=== PATIENT | female | born 1980 ===

== ENCOUNTER 2017-03-16 08:38 | Emergency (ER) | payer MEDICAID, OTHER ==
[2017-03-16 08:50] VITALS: BMI 25.9
[2017-03-16 08:57] VITALS: TEMP 98.9
[2017-03-16] MEDS ORDERED: Sodium Chloride 0.9% 1,000 ML IV STA ×2 (09:17→10:20)
--- NOTE | 2017-03-16 09:41 | ED PDOC ---
Arrival/HPI - General Chief Complaint: Abdominal Pain Time Seen by Provider: 03/16/17 09:17 Historian: Patient - History of Present Illness Narrative History of Present Illness (Text): 03/16/17 09:37 36-year-old female presents today with a one-week history of right sided lower abdominal pain. Patient with nausea and vomiting, urinary frequency, and severe right lower quadrant abdominal pain that has been worsening over the past week. She denies fevers at home. No chest pain or shortness of breath. Denies dysuria. Denies vaginal bleeding or discharge. Patient states she was seen in the hospital 6 days ago and was told she had a cyst on her ovary. Patient states the pain has not improved despite taking Motrin. Denies . Denies dizziness or weakness. No other complaints Time/Duration: 1 week Symptom Onset: Gradual Symptom Course: Worsening Quality: Aching, Stabbing Severity Level: Moderate Past Medical History - Provider Review Nursing Documentation Reviewed: Yes - Travel History Have you recently traveled outside [place] w/in the past 3 mons?: No - Infectious Disease Hx of Infectious Diseases: None - Tetanus Immunization Tetanus Immunization: Unknown - Endocrine/Metabolic Hx Diabetes Mellitus Type 2: Yes - Psychiatric Hx Substance Use: No Family/Social History - Physician Review Nursing Documentation Reviewed: Yes Family/Social History: Unknown Family HX Smoking Status: Never Smoked Hx Alcohol Use: No Hx Substance Use: No Allergies/Home Meds Allergies/Adverse Reactions: Allergies No Known Allergies Allergy (Verified 03/16/17 08:50) Home Medications: Home Meds Medication Instructions Recorded Confirmed MetFORMIN [glucoPHAGE] 1,000 mg PO BID 03/16/17 03/16/17 Review of Systems - Review of Systems Constitutional: absent: Fatigue, Fevers Respiratory: absent: SOB, Cough Cardiovascular: absent: Chest Pain, Palpitations Gastrointestinal: Abdominal Pain, Nausea, Vomiting. absent: Constipation, Diarrhea Genitourinary Female: Frequency. absent: Dysuria, Hematuria Musculoskeletal: absent: Arthralgias, Back Pain, Neck Pain Skin: absent: Rash, Pruritis Neurological: absent: Headache, Dizziness Psychiatric: absent: Anxiety, Depression, Suicidal Ideation Physical Exam Vital Signs Reviewed: Yes Vital Signs Temp Pulse Resp BP Pulse Ox 03/16/17 12:08 86 18 119/71 100 03/16/17 11:31 82 16 132/76 97 03/16/17 08:39 98.9 F 88 18 129/74 100 Temperature: Afebrile Blood Pressure: Normal Pulse: Regular Respiratory Rate: Normal Appearance: Positive for: Well-Appearing, Non-Toxic, Comfortable Pain Distress: None Mental Status: Positive for: Alert and Oriented X 3 Finger Stick Blood Glucose: 265 - Systems Exam Head: Present: Atraumatic Mouth: Present: Moist Mucous Membranes Neck: Present: Normal Range of Motion Respiratory/Chest: Present: Clear to Auscultation, Good Air Exchange. No: Respiratory Distress, Accessory Muscle Use Cardiovascular: Present: Regular Rate and Rhythm, Normal S1, S2. No: Murmurs Abdomen: Present: Tenderness (RLQ tenderness), Normal Bowel Sounds, Guarding, McBurney's Point Tender. No: Rebound Back: Present: Normal Inspection, Paraspinal Tenderness (bilateral ). No: Midline Tenderness Upper Extremity: Present: Normal ROM Lower Extremity: Present: Normal ROM Skin: Present: Warm, Dry, Normal Color. No: Rashes Psychiatric: Present: Alert, Oriented x 3 Medical Decision Making ED Course and Treatment: 03/16/17 09:39 Patient is nontoxic well appearing with stable vital signs presenting with [ severe] abdominal pain CBC wnl CMP Glucose; 300 Lipase: wnl Urinalysis + leukocytes, + bacteria CAT scan:FINDINGS: LOWER THORAX: Unremarkable. LIVER: Unremarkable. No gross lesion or ductal dilatation. GALLBLADDER AND BILE DUCTS: Unremarkable. PANCREAS: Unremarkable. No gross lesion or ductal dilatation. SPLEEN: Unremarkable. ADRENALS: Unremarkable. No mass. KIDNEYS AND URETERS: Unremarkable. No hydronephrosis. No solid mass. VASCULATURE: Unremarkable. No aortic aneurysm. BOWEL: Unremarkable. No obstruction. No gross mural thickening. APPENDIX: Normal appendix. PERITONEUM: There is a small amount of free fluid around the right adnexa LYMPH NODES: Unremarkable. No enlarged lymph nodes. BLADDER: Unremarkable. REPRODUCTIVE: There is a thick-walled collapsed cyst in the right ovary with a small amount of adjacent free fluid. Findings are best seen on axial image 130 series 2 BONES: No acute fracture. OTHER FINDINGS: None. IMPRESSION: Thick-walled collapsed cyst in the right ovary with adjacent free fluid consistent with recent cyst rupture. There is no evidence of appendicitis Patient reassessment: The patient feeling better after medications discussed all results in depth with the patient advised follow-up with the therapy site coordinator and primary care physician within the next 2 days. Advised taking Macrobid for UTI. Advised immediate return if symptoms worsen persist or if new concerning symptoms develop. Discussed diabetes with the patient advised exercise and diet modification. All information was translated to the patient using solvent process extractor operator bending roll operator # [id number] Impression: Abdominal pain, ovarian cyst, uti Motrin every 6 hours as needed for pain macrobid; 1 tablet twice daily x 10 days. Follow up with primary care physician within the next 2 days Follow up with the GEAR MACHINIST within the next 2 days. increase fluids Return immediately if symptoms worsen persist or if new symptoms develop: High fevers, increasing pain, vomiting, diarrhea or any other concerning symptoms develop - Lab Interpretations Lab Results: 03/16/17 09:40 03/16/17 09:40 Lab Results 03/16/17 09:40: Urine HCG, Qual Negative 03/16/17 09:40: WBC 6.7, RBC 5.08, Hgb 16.2 H, Hct 45.0, MCV 88.6, MCH 31.9, MCHC 36.0, RDW 12.0, Plt Count 242, MPV 10.1, Gran % 56.8, Lymph % (Auto) 31.3, [place] % (Auto) 11.0 H, Eos % (Auto) 0.6 L, Baso % (Auto) 0.3, Gran # 3.81, Lymph # 2.1, [place] # 0.7 H, Eos # 0.0, Baso # 0.02 03/16/17 09:40: Sodium 133, Potassium 4.2, Chloride 101, Carbon Dioxide 23, Anion Gap 13, BUN 21, Creatinine 0.6 L, Est GFR ( Amer) > 60, Est GFR ( Non-Af Amer) > 60, Random Glucose 301 H*, Calcium 10.3, Total Bilirubin 0.7, AST 28, ALT 40, Alkaline Phosphatase 62, Total Protein 7.6, Albumin 4.2, Globulin 3.4, Albumin/Globulin Ratio 1.2, Lipase 137 03/16/17 09:40: Urine Color Yellow, Urine Appearance Clear, Urine pH 6.0, Ur Specific [place] 1.025, Urine Protein Trace H, Urine Glucose (UA) >=1000, Urine Ketones Negative, Urine Blood Negative, Urine Nitrate Negative, Urine Bilirubin Negative, Urine Urobilinogen 0.2, Ur Leukocyte Esterase Small H, Urine RBC Negative, Urine WBC 1 - 3, Ur Epithelial Cells 10 - 12, Urine Bacteria Small - RAD Interpretation Radiology Orders: 03/16/17 09:35 ABD PELVIS PO & IV CONTRAST [CT] Stat - Medication Orders Current Medication Orders: Discontinued Medications Sodium Chloride (Sodium Chloride 0.9%) 1,000 mls @ 999 mls/hr IV .Q1H1M STA Stop: 03/16/17 10:17 Last Admin: 03/16/17 09:39 Dose: 999 mls/hr eMAR Start Stop Document 03/16/17 09:39 SRE (Rec: 03/16/17 09:40 SRE [id number]) Intravenous Solution Start Date 03/16/17 Start Time 09:40 End Date 03/16/17 End time 10:40 Total Infusion Time 60 Sodium Chloride (Sodium Chloride 0.9%) 1,000 mls @ 999 mls/hr IV .Q1H1M STA Stop: 03/16/17 11:20 Last Admin: 03/16/17 11:01 Dose: 999 mls/hr eMAR Start Stop Document 03/16/17 11:01 SRE (Rec: 03/16/17 11:01 SRE [id number]) Intravenous Solution Start Date 03/16/17 Start Time 11:01 End Date 03/16/17 End time 12:00 Total Infusion Time 59 Ketorolac Tromethamine (Toradol) 30 mg IVP STAT STA Stop: 03/16/17 10:01 Last Admin: 03/16/17 10:13 Dose: 30 mg MAR Pain Assessment Document 03/16/17 10:13 SRE (Rec: 03/16/17 10:14 SRE [id number]) Pain Reassessment Is this a pain reassessment? Yes Sleep Is patient sleeping during reassessment? No Presence of Pain Presence of Pain Yes Pain Scale Used Pain Scale Used Numeric Location Left, Right or Bilateral Right Pain Location Body Site Abdomen Description Description Intermittent IVP Administration Document 03/16/17 10:13 SRE (Rec: 03/16/17 10:14 SRE [id number]) Charges for Administration # of IVP Administrations 1 Nitrofurantoin Macrocrystals (Macrobid) 100 mg PO STAT STA Stop: 03/16/17 13:07 Last Admin: 03/16/17 13:12 Dose: 100 mg Ondansetron HCl (Zofran Inj) 4 mg IVP STAT STA Stop: 03/16/17 10:02 Last Admin: 03/16/17 10:12 Dose: 4 mg IVP Administration Document 03/16/17 10:12 SRE (Rec: 03/16/17 10:13 SRE [id number]) Charges for Administration # of IVP Administrations 1 Disposition/Present on Arrival - Present on Arrival Any Indicators Present on Arrival: No History of DVT/PE: No History of Uncontrolled Diabetes: No Urinary Catheter: No History of Decub. Ulcer: No History Surgical Site Infection Following: None - Disposition Have Diagnosis and Disposition been Completed?: Yes Diagnosis: Abdominal pain, Ovarian cyst, UTI (urinary tract infection), Diabetes Disposition: HOME/ ROUTINE Disposition Time: 13:27 Patient Plan: Discharge Patient Problems: Current Active Problems Problem Status Onset Abdominal pain Acute Diabetes Acute Ovarian cyst Acute UTI (urinary tract infection) Acute Condition: GOOD Discharge Instructions (ExitCare): Ovarian Cyst (ED), Acute Abdominal Pain (ED) Print Language: FRENCH Additional Instructions: Motrin every 6 hours as needed for pain macrobid; 1 tablet twice daily x 10 days. Follow up with primary care physician within the next 2 days Follow up with the GEAR MACHINIST within the next 2 days. increase fluids Return immediately if symptoms worsen persist or if new symptoms develop: High fevers, increasing pain, vomiting, diarrhea or any other concerning symptoms develop Prescriptions: Nitrofurantoin Macrocrystals [Macrobid] 100 mg PO BID #20 cap Referrals: [facility] [place]Outside] - [facility] with [facility] [Outside] - Follow up with primary Forms: [employer] (Ugandan), WORK NOTE
[2017-03-16] MEDS ORDERED: Iohexol 240 (50 ml) ONE (09:42)
[2017-03-16 09:53] LABS: BASO # 0.02 K/mm3 (0.0-2.0); BASO % 0.3 % (0.0-3.0); EOS % 0.6 % (1.5-5.0); GRAN # 3.81 (1.4-6.5); GRAN % 56.8 % (50.0-68.0); LYMPH # 2.1 (1.2-3.4); LYMPH % 31.3 % (22.0-35.0); MEAN CELL VOLUME 88.6 fl (80.0-105.0); MEAN CORPUSCULAR HEMOGLOBIN 31.9 pg (25.0-35.0); MEAN PLATELET VOLUME 10.1 fl (7.0-11.0); MONO # 0.7 (0.1-0.6); WHITE BLOOD COUNT 6.7 10^3/ul (4.5-11.0)
[2017-03-16 09:54] LABS: URINE BILIRUBIN NEGATIVE (NEGATIVE); URINE BLOOD NEGATIVE (NEGATIVE); URINE GLUCOSE (UA) >=1000 mg/dL (NEGATIVE); URINE KETONE NEGATIVE (NEGATIVE); URINE LEUKOCYTE ESTERASE SMALL Leu/uL (NEGATIVE); URINE PROTEIN TRACE mg/dL (<30 mg/dL); URINE UROBILINOGEN 0.2 E.U./dL (<1 E.U./dL)
[2017-03-16 09:56] LABS: URINE APPEARANCE CLEAR (CLEAR); URINE COLOR YELLOW (YELLOW)
[2017-03-16 09:59] LABS: URINE RBC NEGATIVE /hpf (0-2)
[2017-03-16 10:00] LABS: URINE BACTERIA SMALL (NEG)
[2017-03-16 10:04] LABS: ALB/GLOB RATIO 1.2 (1.1-1.8); ALKALINE PHOSPHATASE 62 U/L (38-126); ALT/SGPT 40 U/L (7-56); AST/SGOT 28 U/L (14-36); BILIRUBIN,TOTAL 0.7 mg/dL (0.2-1.3); BLOOD UREA NITROGEN 21 mg/dL (7-21); CALCIUM 10.3 mg/dL (8.4-10.5); CARBON DIOXIDE 23 mmol/L (21-33); CHLORIDE 101 mmol/L (98-107); GFR AFRICAN-AMERICAN > 60; LIPASE 137 U/L (23-300); POTASSIUM 4.2 mmol/L (3.6-5.0); SODIUM 133 mmol/L (132-148); TOTAL PROTEIN 7.6 g/dL (5.8-8.3)
[2017-03-16 10:12] LABS: GLUCOSE,RANDOM 301 mg/dL (70-110)
[2017-03-16] MEDS ORDERED: Iohexol 350 MG/100 ML VIAL ONE (11:11)
[2017-03-16 12:13] VITALS: BP 119/71; PULSE 86; RESP 18; O2SAT 100
--- NOTE | 2017-03-16 12:33 | CT ---
PROCEDURE: CT Abdomen and Pelvis with contrast HISTORY: rlq abdominal pain COMPARISON: None. TECHNIQUE: Contrast dose: 100 cc of Omni 350 Radiation dose: Total exam DLP = 326 mGy-cm. This CT exam was performed using one or more of the following dose reduction techniques: Automated exposure control, adjustment of the mA and/or kV according to patient size, and/or use of iterative reconstruction technique. FINDINGS: LOWER THORAX: Unremarkable. LIVER: Unremarkable. No gross lesion or ductal dilatation. GALLBLADDER AND BILE DUCTS: Unremarkable. PANCREAS: Unremarkable. No gross lesion or ductal dilatation. SPLEEN: Unremarkable. ADRENALS: Unremarkable. No mass. KIDNEYS AND URETERS: Unremarkable. No hydronephrosis. No solid mass. VASCULATURE: Unremarkable. No aortic aneurysm. BOWEL: Unremarkable. No obstruction. No gross mural thickening. APPENDIX: Normal appendix. PERITONEUM: There is a small amount of free fluid around the right adnexa LYMPH NODES: Unremarkable. No enlarged lymph nodes. BLADDER: Unremarkable. REPRODUCTIVE: There is a thick-walled collapsed cyst in the right ovary with a small amount of adjacent free fluid. Findings are best seen on axial image 130 series 2 BONES: No acute fracture. OTHER FINDINGS: None. IMPRESSION: Thick-walled collapsed cyst in the right ovary with adjacent free fluid consistent with recent cyst rupture. There is no evidence of appendicitis
--- NOTE | 2017-03-16 16:55 | CARD ---
APPROVED REPORT EKG Measurement Heart [id number] PA [id number] <Conclusion> Normal sinus rhythm Nonspecific ST abnormality Abnormal ECG
== END 2017-03-16 13:39 | disposition home or self-care (01) ==
LOC: ED 08:38
DX: N83.201 Unspecified ovarian cyst, right side (principal); N39.0 Urinary tract infection, site not specified; E11.9 Type 2 diabetes mellitus without complications; R10.9 Unspecified abdominal pain; Z79.84 Long term (current) use of oral hypoglycemic drugs
CPT/HCPCS: 74177; 80053; 81001; 83690; 84703; 85025; 87086; 93005; 96361; 96374; 96375; 99285; J1885; J2405; J7040; Q9966; Q9967

== ENCOUNTER 2017-04-14 13:55 | Observation (INO) | payer MEDICAID ==
[2017-04-14 14:09] VITALS: BMI 26.5
[2017-04-14] MEDS ORDERED: Sodium Chloride 0.9% 500 ML IV STA ×2 (14:09→15:20)
--- NOTE | 2017-04-14 14:34 | ED PDOC ---
Arrival/HPI - General Chief Complaint: Altered Mental Status Time Seen by Provider: 04/14/17 14:02 Historian: Patient, EMS EM Caveat: Altered Mental Status, Language Barrier - Critical Care Critical Care Minutes: Other (35minutes) Narrative Critical Care (Text): 04/14/17 16:47 critical care time: 35min, excluding procedure time, excluding time teaching residents/students/mid-level providers; including initial eval/diagnosis, diagnostic interpretation, re-eval, consultations, final disposition - History of Present Illness Narrative History of Present Illness (Text): 04/14/17 14:34 per EMS, pt was not feeling well today, while at work just prior to ED arrival became lightheaded/worsening fatigue and ? syncope while sitting at her work; EMS arrived and noted FS ~ 340s; pt states she has diffuse pain/discomfort throughout her head/chest/abd; pt states no fever/chills/sweats, no sob, no n/v , no numbness/tingling, no urinary/bowel changes, no incontience, no rashes, no gross bleeding, no fall/trauma/sick contact, no travel; pt is here for further eval; pt's without other complaints. 04/14/17 16:04 pt states she has not been eating well, no appetite, ? depression Time/Duration: Prior to Arrival Symptom Onset: Sudden Symptom Course: Unchanged Quality: Burning, Throbbing Severity Level: 5 Activities at Onset: Rest Context: Sitting Past Medical History - Provider Review Nursing Documentation Reviewed: Yes - Travel History Have you recently traveled outside [place] w/in the past 3 mons?: No - Past History Past History: Non-Contributing (hx of diabetes/ovarian cysts) - Infectious Disease Hx of Infectious Diseases: None - Tetanus Immunization Tetanus Immunization: Unknown - Reproductive Menopause: No - Past Medical History Past Medical History: Non-Contributing - Endocrine/Metabolic Hx Diabetes Mellitus Type 2: Yes - Psychiatric Hx Substance Use: No - Suicidal Assessment Suicidal Thoughts: No Family/Social History - Physician Review Nursing Documentation Reviewed: Yes Family/Social History: Other (non-contributory) Smoking Status: Never Smoked Hx Alcohol Use: No Hx Substance Use: No Allergies/Home Meds Allergies/Adverse Reactions: Allergies No Known Allergies Allergy (Verified 03/11/17 20:07) Home Medications: Home Meds Medication Instructions Recorded Confirmed MetFORMIN [glucoPHAGE] 1,000 mg PO BID 03/16/17 04/14/17 Review of Systems - Review of Systems Systems not reviewed;Unavailable: Language Barrier Constitutional: Normal, Other (alert/awake, NAD, following commands but decr verbal responses; resting in bed) Eyes: Normal. absent: Vision Changes, Photophobia, Eye Pain ENT: Normal Respiratory: Normal Cardiovascular: Chest Pain. absent: Palpitations, Edema, Calf Pain, [place] Gastrointestinal: Abdominal Pain Genitourinary Female: Normal Musculoskeletal: Normal Skin: Normal Neurological: Headache, Dizziness Endocrine: Normal Hemo/Lymphatic: Normal Psychiatric: Depression Physical Exam Vital Signs Reviewed: Yes (mildly elevated BP) Vital Signs Temp Pulse Resp BP Pulse Ox 04/14/17 16:23 86 18 109/60 99 04/14/17 14:45 98.3 F 82 17 113/72 100 04/14/17 14:02 98 F 88 18 147/58 L 100 Temperature: Afebrile Blood Pressure: Hypertensive Pulse: Regular Respiratory Rate: Normal Appearance: Positive for: Well-Appearing, Non-Toxic, Other (alert/awake, NAD, following commands but decr verbal responses; resting in bed) Pain Distress: None Mental Status: Positive for: Alert and Oriented X 3 - Systems Exam Head: Present: Atraumatic, Normocephalic Pupils: Present: PERRL, Other (visual field intact b/l, no photophobia, sclera anicteric) Extroacular Muscles: Present: EOMI Conjunctiva: Present: Normal Ears: Present: Normal Mouth: Present: Moist Mucous Membranes, Normal Teeth Pharnyx: Present: Normal Nose (External): Present: Atraumatic Neck: Present: Normal Range of Motion Respiratory/Chest: Present: Clear to Auscultation, Good Air Exchange. No: Respiratory Distress, Accessory Muscle Use, Wheezes, Decreased Breath Sounds, Rales, Rhonchi Cardiovascular: Present: Regular Rate and Rhythm, Normal S1, S2. No: Murmurs Abdomen: Present: Normal Bowel Sounds. No: Tenderness, Distention, Peritoneal Signs, Rebound, Guarding, McBurney's Point Tender, Rovsing's Sign Present Rectal: Present: Normal Rectal Tone, Other (GUAIC: negative). No: Occult Blood , Rectal Tenderness Back: Present: Normal Inspection Upper Extremity: Present: Normal Inspection, Normal ROM, NORMAL PULSES, Capillary Refill < 2s. No: Cyanosis, Edema Lower Extremity: Present: Normal Inspection, NORMAL PULSES, Normal ROM, Capillary Refill < 2 s. No: Edema, CALF TENDERNESS Neurological: Present: GCS=15, CN II-XII Intact, Motor Func Grossly Intact, Normal Sensory Function Skin: Present: Warm, Normal Color, Other (cap refill < 1sec, no lesions/ lacerations, no petechiae, no gross pallor). No: Rashes Psychiatric: Present: Alert, Other (mild flat affect) Medical Decision Making ED Course and Treatment: 04/14/17 14:54 pt arrived to ED with elevated FS and complaints of diffuse body pain/mejia/chest aches/abd pain; pt ? passed out while at work today A/P: weakness/pain/syncope, elevated FS - labs - iv - ekg - xray and ct head - ua - observe - supportive care 04/14/17 16:08 i was notified by nursing staff that after i had notified patient of her medical results, pt cried and states she feels very depressed and ? suicidal 04/14/17 16:51 pt became tearful pt is made aware of pt's medical results agrees with admission 4:30pm - i spoke to clinical operations specialist hospitalists, Dr Qureshi, made aware of pt's current ED presentation, does not recommend blood transfusion at the moment, agrees with ED mgt, will re-check pt's lab results and agrees with admission Reassessment Condition: Unchanged, Improving,but remains with symptoms - Lab Interpretations Narrative Lab Interpretation (Text): 04/14/17 18:27 initial lab results were concerning and abnl repeated CMP indicated improvements, will hold Calcium Gluconate/KCL pt's H/H is improved as well 04/14/17 18:27 Lab Results: 04/14/17 16:11 04/14/17 16:11 Lab Results 04/14/17 16:11: Sodium 138, Chloride 109 H, Potassium 3.8, Carbon Dioxide 20 L, Anion Gap 13, BUN 9, Creatinine 0.5 L, Est GFR ( Amer) > 60, Est GFR (Non -Af Amer) > 60, Random Glucose 205 H, Calcium 8.5, Magnesium 1.5 L, Total Bilirubin 0.7, AST 17, ALT 32, Alkaline Phosphatase 50, Total Protein 6.7, Albumin 3.5, Globulin 3.2, Albumin/Globulin Ratio 1.1 04/14/17 16:11: WBC 7.6 D, RBC 4.28, Hgb 13.4 D, Hct 38.2, MCV 89.3, MCH 31.3 , MCHC 35.1, RDW 12.4, Plt Count 241, MPV 10.3 04/14/17 16:11: Ammonia < 9 L 04/14/17 14:26: pO2 36, VBG pH 7.28 L, VBG pCO2 35.0 L, VBG HCO3 16.4 L, VBG Total CO2 17.5 L, VBG O2 Sat (Calc) 68.7 H, VBG Base Excess -9.4 L, VBG Potassium 2.9 L, Sodium 140.0, Chloride 114.0 H, Glucose 234 H, Lactate 1.3, FiO2 21.0, Venous Blood Potassium 2.9 L 04/14/17 14:26: Salicylates < 1 L, Acetaminophen < 10.0 L 04/14/17 14:26: Serum Osmolality Pending, TSH 3rd Generation 0.11 L, Alcohol, Quantitative < 10 04/14/17 14:26: Urine Opiates Screen Negative, Urine Methadone Screen Negative, Ur Barbiturates Screen Negative, Ur Phencyclidine Scrn Negative, Ur Amphetamines Screen Negative, U Benzodiazepines Scrn Negative, U Oth Cocaine Metabols Negative, U Cannabinoids Screen Negative 04/14/17 14:26: Sodium 140, Chloride 119 H, Potassium 2.8 L* D, Carbon Dioxide 15 L, Anion Gap 9 L, BUN 8, Creatinine 0.4 L, Est GFR ( Amer) > 60, Est GFR (Non-Af Amer) > 60, Random Glucose 195 H, Calcium 5.5 L*, Phosphorus 1.6 L, Magnesium 1.1 L, Total Bilirubin 0.5, AST 11 L D, ALT 33, Alkaline Phosphatase 29 L D, Lactate Dehydrogenase 230 L, Total Creatine Kinase 51, Troponin I < 0.01 , Total Protein 4.6 L, Albumin 2.2 L, Globulin 2.4, Albumin/Globulin Ratio 0.9 L 04/14/17 14:26: Urine Color Yellow, Urine Appearance Clear, Urine pH 6.0, Ur Specific [place] 1.020, Urine Protein Negative, Urine Glucose (UA) >=1000, Urine Ketones 15 H, Urine Blood Negative, Urine Nitrate Negative, Urine Bilirubin Negative, Urine Urobilinogen 0.2, Ur Leukocyte Esterase Negative 04/14/17 14:26: WBC 4.4 L D, RBC 2.78 L, Hgb 8.7 L D, Hct 25.0 L, MCV 89.9, MCH 31.3, MCHC 34.8, RDW 12.2, Plt Count 152, MPV 9.6, Gran % 65.7, Lymph % (Auto) 27.9, [place] % (Auto) 6.2 H, Eos % (Auto) 0.2 L, Baso % (Auto) 0.0, Gran # 2.88, Lymph # 1.2, [place] # 0.3, Eos # 0.0, Baso # 0.00 04/14/17 14:00: POC Glucose (mg/dL) 291 H I have reviewed the lab results: Yes Interpretation: Abnormal lab values (+ anemia; abnl electrolytes) - RAD Interpretation Narrative RAD Interpretations (Text): 04/14/17 16:10 BRAIN: Sheldon-white matter differentiation is preserved. There is no mass, mass effect or abnormal extra-axial fluid collection. VENTRICLES: The ventricles are normal in size, shape and configuration. CALVARIUM: The skull base and calvarium are normal. PARANASAL SINUSES: There is mild polypoid mucosal thickening in the left maxillary sinus. The remaining included paranasal sinuses are clear. MASTOID AIR CELLS: Unremarkable as visualized. No inflammatory changes. OTHER FINDINGS: None. IMPRESSION: No acute intracranial abnormality. Radiology Orders: 04/14/17 14:09 HEAD W/O CONTRAST [CT] Stat 04/14/17 14:12 CHEST TWO VIEWS (PA/LAT) [RAD] Stat Foam Gun Operator: Radiologist - EKG Interpretation EKG Interpretation (Text): 04/14/17 14:31 NSR at 90 bpm, normal axis, no ectopy, inverted T in leads III, no st changes, Borderline EKG; unchanged compare with old ekg 03/2017 Interpreted by ED Physician: Yes Type: 12 lead EKG Comparison: Similar to previous EKG - Medication Orders Current Medication Orders: Acetaminophen (Tylenol 325mg Tab) 650 mg PO Q4H PRN PRN Reason: Fever >100.4 F Acetaminophen (Tylenol 325mg Tab) 650 mg PO Q4 PRN PRN Reason: Pain, moderate (4-7) Heparin Sodium (Porcine) (Heparin) 5,000 units SC Q8 LYN PRN Reason: Protocol Magnesium Sulfate/Dextrose (Magnesium Sulfate 1 Gm/100 Ml D5w) 1 gm in 100 mls @ 100 mls/hr IVPB ONCE ONE Stop: 04/14/17 18:29 Insulin Human Lispro (Humalog Med) 0 units SC ACHS LYN PRN Reason: Protocol Pantoprazole Sodium (Protonix Ec Tab) 40 mg PO ACB LYN Discontinued Medications Sodium Chloride (Sodium Chloride 0.9%) 500 mls @ 1,000 mls/hr IV .Q30M STA Stop: 04/14/17 14:38 Last Admin: 04/14/17 14:20 Dose: 1,000 mls/hr eMAR Start Stop Document 04/14/17 14:20 RG (Rec: 04/14/17 14:20 RG [id number]) Intravenous Solution Start Date 04/14/17 Start Time 14:20 Sodium Chloride (Sodium Chloride 0.9%) 500 mls @ 999 mls/hr IV .Q31M STA Stop: 04/14/17 15:50 Last Admin: 04/14/17 16:00 Dose: 999 mls/hr eMAR Start Stop Document 04/14/17 16:00 RG (Rec: 04/14/17 17:07 RG [id number]) Intravenous Solution Start Date 04/14/17 Start Time 16:00 End Date 04/14/17 Disposition/Present on Arrival - Present on Arrival Any Indicators Present on Arrival: Yes History of DVT/PE: No History of Uncontrolled Diabetes: No Urinary Catheter: No History of Decub. Ulcer: No History Surgical Site Infection Following: None - Disposition Have Diagnosis and Disposition been Completed?: Yes Diagnosis: Syncope and collapse, Dizziness, Electrolyte abnormality, Anemia Disposition: HOSPITALIZED Disposition Time: 16:41 Patient Plan: Admission Patient Problems: Current Active Problems Problem Status Onset Syncope and collapse Acute Dizziness Acute Electrolyte abnormality Acute Anemia Acute Condition: STABLE
[2017-04-14 14:46] LABS: VENOUS BLOOD GAS BASE EXCESS -9.4 mmol/L (0.0-2.0); VENOUS BLOOD PH 7.28 (7.32-7.43)
[2017-04-14 14:51] LABS: EOS % 0.2 % (1.5-5.0); GRAN # 2.88 (1.4-6.5); GRAN % 65.7 % (50.0-68.0); LYMPH # 1.2 (1.2-3.4); LYMPH % 27.9 % (22.0-35.0); MEAN CELL VOLUME 89.9 fl (80.0-105.0); MEAN CORPUSCULAR HEMOGLOBIN 31.3 pg (25.0-35.0); MEAN CORPUSCULAR HGB CONC 34.8 g/dl (31.0-37.0); MEAN PLATELET VOLUME 9.6 fl (7.0-11.0); MONO # 0.3 (0.1-0.6); MONO % 6.2 % (1.0-6.0); RED CELL DISTRIBUTION WIDTH 12.2 % (11.5-14.5); URINE BILIRUBIN NEGATIVE (NEGATIVE); URINE BLOOD NEGATIVE (NEGATIVE); URINE GLUCOSE (UA) >=1000 mg/dL (NEGATIVE); URINE KETONE 15 mg/dL (NEGATIVE); URINE LEUKOCYTE ESTERASE NEGATIVE Leu/uL (NEGATIVE); URINE PROTEIN NEGATIVE mg/dL (<30 mg/dL); URINE UROBILINOGEN 0.2 E.U./dL (<1 E.U./dL); WHITE BLOOD COUNT 4.4 10^3/ul (4.5-11.0)
[2017-04-14 14:54] LABS: URINE APPEARANCE CLEAR (CLEAR); URINE COLOR YELLOW (YELLOW)
[2017-04-14 15:00] LABS: ALCOHOL SERUM < 10 mg/dL (0-10)
[2017-04-14] MEDS ORDERED: Potassium Chloride 20 mEq ER Tab PO STA (15:19)
[2017-04-14 15:20] LABS: TROPONIN I < 0.01 ng/mL
[2017-04-14 15:23] LABS: ALB/GLOB RATIO 0.9 (1.1-1.8); ALKALINE PHOSPHATASE 29 U/L (38-126); ALT/SGPT 33 U/L (7-56); AST/SGOT 11 U/L (14-36); BILIRUBIN,TOTAL 0.5 mg/dL (0.2-1.3); BLOOD UREA NITROGEN 8 mg/dL (7-21); CALCIUM 5.5 mg/dL (8.4-10.5); CARBON DIOXIDE 15 mmol/L (21-33); CHLORIDE 119 mmol/L (98-107); GFR AFRICAN-AMERICAN > 60; GLUCOSE,RANDOM 195 mg/dL (70-110); MAGNESIUM 1.1 mg/dL (1.7-2.2); PHOSPHOROUS 1.6 mg/dL (2.5-4.5); SODIUM 140 mmol/L (132-148); TOTAL PROTEIN 4.6 g/dL (5.8-8.3)
[2017-04-14 15:30] LABS: POTASSIUM 2.8 mmol/L (3.6-5.0)
[2017-04-14 15:31] LABS: THYROID STIMULATING HORMONE 0.11 mIU/mL (0.46-4.68)
--- NOTE | 2017-04-14 15:45 | CT ---
PROCEDURE: CT HEAD WITHOUT CONTRAST. HISTORY: AMS, headache, no trauma COMPARISON: None available. TECHNIQUE: Axial computed tomography images were obtained through the head/brain without intravenous contrast. Radiation dose: Total exam DLP = 726.57 mGy-cm. This CT exam was performed using one or more of the following dose reduction techniques: Automated exposure control, adjustment of the mA and/or kV according to patient size, and/or use of iterative reconstruction technique. FINDINGS: HEMORRHAGE: No intracranial hemorrhage. BRAIN: Sheldon-white matter differentiation is preserved. There is no mass, mass effect or abnormal extra-axial fluid collection. VENTRICLES: The ventricles are normal in size, shape and configuration. CALVARIUM: The skull base and calvarium are normal. PARANASAL SINUSES: There is mild polypoid mucosal thickening in the left maxillary sinus. The remaining included paranasal sinuses are clear. MASTOID AIR CELLS: Unremarkable as visualized. No inflammatory changes. OTHER FINDINGS: None. IMPRESSION: No acute intracranial abnormality.
[2017-04-14 16:35] LABS: HEMATOCRIT 38.2 % (36.0-48.0); MEAN CELL VOLUME 89.3 fl (80.0-105.0); MEAN CORPUSCULAR HEMOGLOBIN 31.3 pg (25.0-35.0); MEAN CORPUSCULAR HGB CONC 35.1 g/dl (31.0-37.0); MEAN PLATELET VOLUME 10.3 fl (7.0-11.0); RED CELL DISTRIBUTION WIDTH 12.4 % (11.5-14.5); WHITE BLOOD COUNT 7.6 10^3/ul (4.5-11.0)
[2017-04-14 16:59] LABS: ALB/GLOB RATIO 1.1 (1.1-1.8); ALKALINE PHOSPHATASE 50 U/L (38-126); ALT/SGPT 32 U/L (7-56); AST/SGOT 17 U/L (14-36); BILIRUBIN,TOTAL 0.7 mg/dL (0.2-1.3); BLOOD UREA NITROGEN 9 mg/dL (7-21); CALCIUM 8.5 mg/dL (8.4-10.5); CARBON DIOXIDE 20 mmol/L (21-33); CHLORIDE 109 mmol/L (98-107); GFR AFRICAN-AMERICAN > 60; GLUCOSE,RANDOM 205 mg/dL (70-110); MAGNESIUM 1.5 mg/dL (1.7-2.2); POTASSIUM 3.8 mmol/L (3.6-5.0); SODIUM 138 mmol/L (132-148); TOTAL PROTEIN 6.7 g/dL (5.8-8.3)
--- NOTE | 2017-04-14 17:27 | CP.PCM.HP ---
<Serge Billy - Last Filed: 04/14/17 18:26> History of Present Illness - History of Present Illness History of Present Illness: Subjective: Patient is a 36 year old female with a past medical history of dm and htn who presents to the ED via EMS for evaluation and treatment of worsening fatigue and lightheadedness. Patient states that there was no provoking event. Admits to dizziness when at rest. Not associated with postural changes. Patient states she fainted at work and was caught by her co-worker prior to hitting her head. Coworker is present at bedside to confirm story. Permission was granted by the patient to discuss all of her medical information/discuss her case in front of coworker. States she fainted three times in the past month with spontaneous recovery without further evaluation. Patient was diagnosed with DM approximately 1.5 months ago at [facility]. States her BGs at home elevate to the 500s despite being compliant with metformin. States she does not eat when her BG are elevated and subsequently feel dizzy. She also experienced several bouts of nonbloody, yellow colored emesis. Patient is emotional due to stress from work and family life. Denies sick contact, recent travel, suicidal, or homicidal ideation. Denies fever, chills, chest pain, shortness of breath, abdominal pain, diarrhea, constipation, and urinary symptoms. PMHx: hypertension, diabetes PSHX: none Allergies: NKDA Family Hx: mother- colon cancer at age 57, diabetes Social Hx: denies ETOH use, tobacco use, and illicit drug use PMD: "[facility] [place]" needs to establish Pharmacy: [facility] 12-point review of systems negative except as indicated in the HPI Physical Examination: General: No acute distress Head: atraumatic normocephalic Eyes: EOMI, non icteric Neck: supple Heart: +s1 +s2, RRR, no murmurs, no gallops Lungs: CTA bilaterally, no rales, no rhonchi, no wheezing Abdomen: soft, not tender to palpation, no organomegaly, + bowel sounds x 4 Neuro: AAO x 3, CN II- XII intact, muscle strength 5/5 throughout, Patient is awake, alert, responds to verbal stimuli, answers questions appropriately, follows commands, and moves extremities past midline Extremities: no clubbing, cyanosis, edema Skin: warm and moist Assessment and Plan: Patient is a 36 year old female with a past medical history of dm who was admitted for evaluation and treatment of worsening fatigue and lightheadedness. Syncope; Dizziness - likely 2/2 combination of electrolyte abnormality, dehydration, and elevated sugars - Head CT shows no acute intracranial abnormality - No neurological deficits - Ammonia low - TSH low- will order free T4/T3 - EEG ordered to rule out epileptic events, no tongue biting, no post-ictal state - Monitor closely- fall precautions Diabetes - VBG noted- Non Gapped Metabolic Acidosis, UA is positive for ketones, BG is 205--291 range - Fingersticks ACHS - ISS - HgA1C - IVF NS @ 100 - carb consistent diet Hx of HTN - hold home lisinopril as BP stable now, will confirm dosage with pharmacy prior to administering - hydralazine prn with hold parameters Hypokalemia, Hypomagnesemia - mag repleted - repeat potassium WNL- will monitor closely with daily BMP Symptoms of Depression/Anxiety - psych consult Prophylaxis - DVT- Subq heparin - GI- protonix Patient seen, case discussed with, and plan approved by attending physician, Dr. Shane. Present on Admission - Present on Admission Any Indicators Present on Admission: No Past Patient History - Infectious Disease Hx of Infectious Diseases: None - Tetanus Immunizations Tetanus Immunization: Unknown - Past Social History Smoking Status: Never Smoked - ENDOCRINE/METABOLIC Hx Diabetes Mellitus Type 2: Yes - PSYCHIATRIC Hx Substance Use: No - SURGICAL HISTORY Hx Surgeries: No Meds Home Medications: Home Medication List Medication Instructions Recorded Confirmed Type GlipiZIDE [Glucotrol] 5 mg PO BID #60 tab 04/15/17 Rx Allergies/Adverse Reactions: Allergies Allergy/AdvReac Type Severity Reaction Status Date / Time No Known Allergies Allergy Verified 03/11/17 20:07 Results - Vital Signs Recent Vital Signs: Last Vital Signs Temp 98.3 F 04/14/17 14:45 Pulse 86 04/14/17 16:23 Resp 18 04/14/17 16:23 BP 109/60 04/14/17 16:23 Pulse Ox 99 04/14/17 16:23 - Labs Result Diagrams: 04/14/17 16:11 04/14/17 16:11 <Jaydon Shane - Last Filed: 04/15/17 16:21> Results - Vital Signs Recent Vital Signs: Last Vital Signs Temp 98.7 F 04/15/17 12:00 Pulse 88 04/15/17 14:00 Resp 19 04/15/17 05:40 BP 113/61 04/15/17 05:33 Pulse Ox 100 04/15/17 05:40 - Labs Result Diagrams: 04/15/17 05:30 04/15/17 05:30 Labs: Laboratory Results - last 24 hr 04/14/17 04/14/17 04/14/17 20:20 20:20 20:20 WBC RBC Hgb Hct MCV MCH MCHC RDW Plt Count MPV Gran % Lymph % (Auto) [place] % (Auto) Eos % (Auto) Baso % (Auto) Gran # Lymph # [place] # Eos # Baso # Sodium Potassium Chloride Carbon Dioxide Anion Gap BUN Creatinine Est GFR ( Amer) Est GFR (Non-Af Amer) POC Glucose (mg/dL) Random Glucose Hemoglobin A1c 10.5 H Calcium Phosphorus Magnesium Total Bilirubin AST ALT Alkaline Phosphatase Total Protein Albumin Globulin Albumin/Globulin Ratio Triglycerides 61 Cholesterol 107 L LDL Cholesterol Direct 55 HDL Cholesterol 44 Free T4 1.29 Free T3 pg/mL 3.65 04/14/17 04/15/17 04/15/17 21:52 05:30 05:30 WBC 4.9 D RBC 4.20 Hgb 12.9 Hct 37.9 MCV 90.2 MCH 30.7 MCHC 34.0 RDW 12.7 Plt Count 228 MPV 10.6 Gran % 45.9 L Lymph % (Auto) 43.5 H [place] % (Auto) 9.0 H Eos % (Auto) 1.2 L Baso % (Auto) 0.4 Gran # 2.25 Lymph # 2.1 [place] # 0.4 Eos # 0.1 Baso # 0.02 Sodium 139 Potassium 3.8 Chloride 111 H Carbon Dioxide 19 L Anion Gap 12 BUN 6 L Creatinine 0.5 L Est GFR ( Amer) > 60 Est GFR (Non-Af Amer) > 60 POC Glucose (mg/dL) 204 H Random Glucose 148 H Hemoglobin A1c Calcium 8.3 L Phosphorus 2.9 Magnesium 1.8 Total Bilirubin 0.7 AST 16 ALT 26 Alkaline Phosphatase 41 Total Protein 6.2 Albumin 3.3 Globulin 3.0 Albumin/Globulin Ratio 1.1 Triglycerides Cholesterol LDL Cholesterol Direct HDL Cholesterol Free T4 Free T3 pg/mL 04/15/17 04/15/17 08:16 11:26 WBC RBC Hgb Hct MCV MCH MCHC RDW Plt Count MPV Gran % Lymph % (Auto) [place] % (Auto) Eos % (Auto) Baso % (Auto) Gran # Lymph # [place] # Eos # Baso # Sodium Potassium Chloride Carbon Dioxide Anion Gap BUN Creatinine Est GFR ( Amer) Est GFR (Non-Af Amer) POC Glucose (mg/dL) 179 H 231 H Random Glucose Hemoglobin A1c Calcium Phosphorus Magnesium Total Bilirubin AST ALT Alkaline Phosphatase Total Protein Albumin Globulin Albumin/Globulin Ratio Triglycerides Cholesterol LDL Cholesterol Direct HDL Cholesterol Free T4 Free T3 pg/mL Attending/Attestation - Attestation I have personally seen and examined this patient.: Yes I have fully participated in the care of the patient.: Yes I have reviewed all pertinent clinical information: Yes Notes (Text): 04/15/17 16:15 attending note; Patient seen and examined with resident in ER. Patient is a 36 year old female with a past medical history of diabetes is admitted for the evaluation and treatment of worsening fatigue and lightheadedness. questionable history of syncope. Patient had no significant loss of consciousness,, tongue bite or urinary incontinence. Patient also complained of nausea and feeling anxious at that time. patient has been depressed and had few episodes of anxiety-like attacks in the past few months. The patient was recently diagnosed with diabetes. Taking only metformin. Complaining of diarrhea with metformin. The patient does not have any follow up with PMD. Initial hemoglobin was 8.7. Repeat hemoglobin is normal. No history of bleeding. Guaiac negative. Electrolyte imbalance; potassium, magnesium and phosphorus supplemented. Diabetic education/dietitian evaluation given. Started on by mouth glipizide. Patient will follow-up with diabetic nurse educator Dorina Ny on Tuesday. depression; evaluated by psychiatrist. Patient refused inpatient admission. Patient is cleared for discharged from psychiatric point of view. outpatient referrals given by psychiatrist. advised to follow-up with [facility] or [facility]. diagnosis; Diabetes Hypokalemia/ hypomagnesemia Depression
[2017-04-14] MEDS ORDERED: Magnesium Sulfate 1 gm in D5W 1 GM/100 ML BAG IVPB ONE (17:30)
[2017-04-14] MEDS ORDERED: Potassium Phosphate 3 mmol/ml Inj IV STA (18:44)
[2017-04-14] MEDS ORDERED: Potassium Phosphate 30 MMOLE in Sodium Chloride 0.9% 500 ML IVPB ONE (19:00)
[2017-04-14] MEDS: Sodium Chloride 0.9% 1,000 ML IV SCH (19:39)
[2017-04-14 19:51] VITALS: O2SAT 100
[2017-04-14] MEDS: Insulin Lispro (humaLOG) MEDIUM Coverage SC SCH (21:57)
[2017-04-15] MEDS: Sodium Chloride 0.9% 1,000 ML IV SCH (04:59)
[2017-04-15 05:34] VITALS: BP 113/61
[2017-04-15 05:50] VITALS: RESP 19
[2017-04-15 06:58] LABS: BASO # 0.02 K/mm3 (0.0-2.0); BASO % 0.4 % (0.0-3.0); EOS # 0.1 (0.0-0.7); EOS % 1.2 % (1.5-5.0); GRAN # 2.25 (1.4-6.5); GRAN % 45.9 % (50.0-68.0); HEMATOCRIT 37.9 % (36.0-48.0); LYMPH # 2.1 (1.2-3.4); LYMPH % 43.5 % (22.0-35.0); MEAN CELL VOLUME 90.2 fl (80.0-105.0); MEAN CORPUSCULAR HEMOGLOBIN 30.7 pg (25.0-35.0); MEAN PLATELET VOLUME 10.6 fl (7.0-11.0); MONO # 0.4 (0.1-0.6); RED CELL DISTRIBUTION WIDTH 12.7 % (11.5-14.5); WHITE BLOOD COUNT 4.9 10^3/ul (4.5-11.0)
[2017-04-15] MEDS ORDERED: Pantoprazole 40 mg EC Tab PO SCH (07:30)
[2017-04-15 08:34] LABS: ALB/GLOB RATIO 1.1 (1.1-1.8); ALKALINE PHOSPHATASE 41 U/L (38-126); ALT/SGPT 26 U/L (7-56); AST/SGOT 16 U/L (14-36); BILIRUBIN,TOTAL 0.7 mg/dL (0.2-1.3); BLOOD UREA NITROGEN 6 mg/dL (7-21); CALCIUM 8.3 mg/dL (8.4-10.5); CARBON DIOXIDE 19 mmol/L (21-33); CHLORIDE 111 mmol/L (98-107); GFR AFRICAN-AMERICAN > 60; GLUCOSE,RANDOM 148 mg/dL (70-110); MAGNESIUM 1.8 mg/dL (1.7-2.2); PHOSPHOROUS 2.9 mg/dL (2.5-4.5); POTASSIUM 3.8 mmol/L (3.6-5.0); SODIUM 139 mmol/L (132-148); TOTAL PROTEIN 6.2 g/dL (5.8-8.3)
[2017-04-15] MEDS: Insulin Lispro (humaLOG) MEDIUM Coverage SC SCH ×2 (08:51→11:53)
[2017-04-15] MEDS ORDERED: Potassium & Sodium Phosphate PO SCH (10:00)
--- NOTE | 2017-04-15 11:31 | CP.PCM.DIS ---
<Serge Billy - Last Filed: 04/15/17 14:21> Provider - Provider Date of Admission: 04/14/17 16:42 Attending physician: Jaydon Shane MD Primary care physician: Cesar Profile Required Time Spent in preparation of Discharge (in minutes): 45 Diagnosis - Discharge Diagnosis (1) Hypertension Status: Chronic Priority: Medium (2) Dizziness Status: Acute Priority: Medium (3) Diabetes mellitus Status: Chronic Priority: Medium Hospital Course - Lab Results Lab Results: Most Recent Lab Values WBC 4.9 10^3/ul (4.5-11.0) D 04/15/17 05:30 RBC 4.20 10^6/uL (3.5-6.1) 04/15/17 05:30 Hgb 12.9 g/dL (12.0-16.0) 04/15/17 05:30 Hct 37.9 % (36.0-48.0) 04/15/17 05:30 MCV 90.2 fl (80.0-105.0) 04/15/17 05:30 MCH 30.7 pg (25.0-35.0) 04/15/17 05:30 MCHC 34.0 g/dl (31.0-37.0) 04/15/17 05:30 RDW 12.7 % (11.5-14.5) 04/15/17 05:30 Plt Count 228 10^3/uL (120.0-450.0) 04/15/17 05:30 MPV 10.6 fl (7.0-11.0) 04/15/17 05:30 Gran % 45.9 % (50.0-68.0) L 04/15/17 05:30 Lymph % (Auto) 43.5 % (22.0-35.0) H 04/15/17 05:30 [place] % (Auto) 9.0 % (1.0-6.0) H 04/15/17 05:30 Eos % (Auto) 1.2 % (1.5-5.0) L 04/15/17 05:30 Baso % (Auto) 0.4 % (0.0-3.0) 04/15/17 05:30 Gran # 2.25 (1.4-6.5) 04/15/17 05:30 Lymph # 2.1 (1.2-3.4) 04/15/17 05:30 [place] # 0.4 (0.1-0.6) 04/15/17 05:30 Eos # 0.1 (0.0-0.7) 04/15/17 05:30 Baso # 0.02 K/mm3 (0.0-2.0) 04/15/17 05:30 pO2 36 mm/Hg (30-55) 04/14/17 14:26 VBG pH 7.28 (7.32-7.43) L 04/14/17 14:26 VBG pCO2 35.0 (40-60) L 04/14/17 14:26 VBG HCO3 16.4 mmol/l (21-28) L 04/14/17 14:26 VBG Total CO2 17.5 mmol.L (22-28) L 04/14/17 14:26 VBG O2 Sat (Calc) 68.7 % (40-65) H 04/14/17 14:26 VBG Base Excess -9.4 mmol/L (0.0-2.0) L 04/14/17 14:26 VBG Potassium 2.9 mmol/L (3.6-5.2) L 04/14/17 14:26 Sodium 140.0 mmol/L (132-148) 04/14/17 14:26 Chloride 114.0 mmol/L (98-107) H 04/14/17 14:26 Glucose 234 mg/dl (65-105) H 04/14/17 14:26 Lactate 1.3 mmol/L (0.7-2.1) 04/14/17 14:26 FiO2 21.0 % 04/14/17 14:26 Sodium 139 mmol/L (132-148) 04/15/17 05:30 Potassium 3.8 mmol/L (3.6-5.0) 04/15/17 05:30 Chloride 111 mmol/L (98-107) H 04/15/17 05:30 Carbon Dioxide 19 mmol/L (21-33) L 04/15/17 05:30 Anion Gap 12 (10-20) 04/15/17 05:30 BUN 6 mg/dL (7-21) L 04/15/17 05:30 Creatinine 0.5 mg/dl (0.7-1.2) L 04/15/17 05:30 Est GFR ( Amer) > 60 04/15/17 05:30 Est GFR (Non-Af Amer) > 60 04/15/17 05:30 POC Glucose (mg/dL) 179 mg/dL (65-110) H 04/15/17 08:16 Random Glucose 148 mg/dL (70-110) H 04/15/17 05:30 Calcium 8.3 mg/dL (8.4-10.5) L 04/15/17 05:30 Phosphorus 2.9 mg/dL (2.5-4.5) 04/15/17 05:30 Magnesium 1.8 mg/dL (1.7-2.2) 04/15/17 05:30 Total Bilirubin 0.7 mg/dL (0.2-1.3) 04/15/17 05:30 AST 16 U/L (14-36) 04/15/17 05:30 ALT 26 U/L (7-56) 04/15/17 05:30 Alkaline Phosphatase 41 U/L (38-126) 04/15/17 05:30 Ammonia < 9 umol/L (9-33) L 04/14/17 16:11 Lactate Dehydrogenase 230 U/L (333-699) L 04/14/17 14:26 Total Creatine Kinase 51 U/L (35-230) 04/14/17 14:26 Troponin I < 0.01 ng/mL 04/14/17 14:26 Total Protein 6.2 g/dL (5.8-8.3) 04/15/17 05:30 Albumin 3.3 g/dL (3.0-4.8) 04/15/17 05:30 Globulin 3.0 gm/dL 04/15/17 05:30 Albumin/Globulin Ratio 1.1 (1.1-1.8) 04/15/17 05:30 Triglycerides 61 mg/dL (35-160) 04/14/17 20:20 Cholesterol 107 mg/dL (130-200) L 04/14/17 20:20 LDL Cholesterol Direct 55 mg/dL (0-129) 04/14/17 20:20 HDL Cholesterol 44 mg/dL (29-60) 04/14/17 20:20 Free T4 1.29 ng/dL (0.78-2.19) 04/14/17 20:20 TSH 3rd Generation 0.11 mIU/mL (0.46-4.68) L 04/14/17 14:26 Venous Blood Potassium 2.9 mmol/L (3.6-5.2) L 04/14/17 14:26 Urine Color Yellow (YELLOW) 04/14/17 14:26 Urine Appearance Clear (CLEAR) 04/14/17 14:26 Urine pH 6.0 (4.7-8.0) 04/14/17 14:26 Ur Specific [place] 1.020 (1.005-1.035) 04/14/17 14:26 Urine Protein Negative mg/dL (<30 mg/dL) 04/14/17 14:26 Urine Glucose (UA) >=1000 mg/dL (NEGATIVE) 04/14/17 14:26 Urine Ketones 15 mg/dL (NEGATIVE) H 04/14/17 14:26 Urine Blood Negative (NEGATIVE) 04/14/17 14:26 Urine Nitrate Negative (NEGATIVE) 04/14/17 14:26 Urine Bilirubin Negative (NEGATIVE) 04/14/17 14:26 Urine Urobilinogen 0.2 E.U./dL (<1 E.U./dL) 04/14/17 14:26 Ur Leukocyte Esterase Negative A[place]o/uL (NEGATIVE) 04/14/17 14:26 Salicylates < 1 mg/dL (2.0-20.0) L 04/14/17 14:26 Urine Opiates Screen Negative (NEGATIVE) 04/14/17 14:26 Urine Methadone Screen Negative (NEGATIVE) 04/14/17 14:26 Acetaminophen < 10.0 ug/ml (10.0-20.0) L 04/14/17 14:26 Ur Barbiturates Screen Negative (NEGATIVE) 04/14/17 14:26 Ur Phencyclidine Scrn Negative (NEGATIVE) 04/14/17 14:26 Ur Amphetamines Screen Negative (NEGATIVE) 04/14/17 14:26 U Benzodiazepines Scrn Negative (NEGATIVE) 04/14/17 14:26 U Oth Cocaine Metabols Negative (NEGATIVE) 04/14/17 14:26 U Cannabinoids Screen Negative (NEGATIVE) 04/14/17 14:26 Alcohol, Quantitative < 10 mg/dL (0-10) 04/14/17 14:26 - Hospital Course Hospital Course: Patient is a 36 year old female with a past medical history of diabetes and hypertension who was admitted for evaluation and treatment of worsening fatigue and lightheadedness. With the use of physical examinations, lab work, and imaging the patient was diagnosed with presyncope likely secondary to a combination of electrolyte abnormality, dehydration, and elevated blood glucose. During their hospital stay the patient was seen by the diabetic nurse educator and psychiatry whose ecommendations were both appreciated and utilized in the care for this patient. During their hospital stay the patient underwent a head CT, chest xray, and EKG which were reviewed, appreciated, and utilized in the management of the patients clinical course. Patient was treated with diabetic medications, intravenous fluids, anticoagulants amongst other empiric/therapeutic medications. At this time the patient is medically stable for discharge. Patient understands and appreciates discharge plan. Patient instructed to follow up with primary care physicians and referrals within three to five days from discharge. Furthermore, the patient is instructed to take medications as prescribed and to return to emergency room for evaluation of intractable headache, fever, chills, dizziness, chest pain, shortness of breath, abdominal pain, nausea, vomiting, diarrhea, constipation, and urinary symptoms. This is a brief summary of the patients hospital course. Please see patient chart for full details. Discharge Exam - Additional Findings Additional findings: General: No acute distress Head: atraumatic normocephalic Eyes: EOMI, non icteric Neck: supple Heart: +s1 +s2, RRR, no murmurs, no gallops Lungs: CTA bilaterally, no rales, no rhonchi, no wheezing Abdomen: soft, not tender to palpation, no organomegaly, + bowel sounds x 4 Neuro: AAO x 3, CN II- XII intact, muscle strength 5/5 throughout, Patient is awake, alert, responds to verbal stimuli, answers questions appropriately, follows commands, and moves extremities past midline Extremities: no clubbing, cyanosis, edema Skin: warm and moist Discharge Plan - Discharge Medications Prescriptions: RX: GlipiZIDE [Glucotrol] 5 mg PO BID #60 tab - Follow Up Plan Condition: STABLE Disposition: HOME/ ROUTINE Patient education suggested?: Yes Instructions: How to Check Your Blood Sugar (DC) Additional Instructions: Patient Instructions: Take medications as prescribed. New medications include: Glipizide 5mg 1 tablet by mouth once a day discontinue metformin. Please visit the [facility] for continued care of your diabetes and hypertension. [phone]; [address] [place] [address]. Appt schedule for next week. Return to the emergency room for evaluation of intractable headache, fever, chills, dizziness, chest pain, shortness of breath, abdominal pain, nausea, vomiting, diarrhea, constipation, and urinary symptoms. Referrals: Cesar Sol, [Primary Care Provider] - Coretta Way MD [Staff Provider] - <Jaydon Shane - Last Filed: 04/15/17 16:32> Provider - Provider Date of Admission: 04/14/17 16:42 Attending physician: Jaydon Shane MD Primary care physician: Cesar Villarreal Required Hospital Course - Lab Results Lab Results: Most Recent Lab Values WBC 4.9 10^3/ul (4.5-11.0) D 04/15/17 05:30 RBC 4.20 10^6/uL (3.5-6.1) 04/15/17 05:30 Hgb 12.9 g/dL (12.0-16.0) 04/15/17 05:30 Hct 37.9 % (36.0-48.0) 04/15/17 05:30 MCV 90.2 fl (80.0-105.0) 04/15/17 05:30 MCH 30.7 pg (25.0-35.0) 04/15/17 05:30 MCHC 34.0 g/dl (31.0-37.0) 04/15/17 05:30 RDW 12.7 % (11.5-14.5) 04/15/17 05:30 Plt Count 228 10^3/uL (120.0-450.0) 04/15/17 05:30 MPV 10.6 fl (7.0-11.0) 04/15/17 05:30 Gran % 45.9 % (50.0-68.0) L 04/15/17 05:30 Lymph % (Auto) 43.5 % (22.0-35.0) H 04/15/17 05:30 [place] % (Auto) 9.0 % (1.0-6.0) H 04/15/17 05:30 Eos % (Auto) 1.2 % (1.5-5.0) L 04/15/17 05:30 Baso % (Auto) 0.4 % (0.0-3.0) 04/15/17 05:30 Gran # 2.25 (1.4-6.5) 04/15/17 05:30 Lymph # 2.1 (1.2-3.4) 04/15/17 05:30 [place] # 0.4 (0.1-0.6) 04/15/17 05:30 Eos # 0.1 (0.0-0.7) 04/15/17 05:30 Baso # 0.02 K/mm3 (0.0-2.0) 04/15/17 05:30 pO2 36 mm/Hg (30-55) 04/14/17 14:26 VBG pH 7.28 (7.32-7.43) L 04/14/17 14:26 VBG pCO2 35.0 (40-60) L 04/14/17 14:26 VBG HCO3 16.4 mmol/l (21-28) L 04/14/17 14:26 VBG Total CO2 17.5 mmol.L (22-28) L 04/14/17 14:26 VBG O2 Sat (Calc) 68.7 % (40-65) H 04/14/17 14:26 VBG Base Excess -9.4 mmol/L (0.0-2.0) L 04/14/17 14:26 VBG Potassium 2.9 mmol/L (3.6-5.2) L 04/14/17 14:26 Sodium 140.0 mmol/L (132-148) 04/14/17 14:26 Chloride 114.0 mmol/L (98-107) H 04/14/17 14:26 Glucose 234 mg/dl (65-105) H 04/14/17 14:26 Lactate 1.3 mmol/L (0.7-2.1) 04/14/17 14:26 FiO2 21.0 % 04/14/17 14:26 Sodium 139 mmol/L (132-148) 04/15/17 05:30 Potassium 3.8 mmol/L (3.6-5.0) 04/15/17 05:30 Chloride 111 mmol/L (98-107) H 04/15/17 05:30 Carbon Dioxide 19 mmol/L (21-33) L 04/15/17 05:30 Anion Gap 12 (10-20) 04/15/17 05:30 BUN 6 mg/dL (7-21) L 04/15/17 05:30 Creatinine 0.5 mg/dl (0.7-1.2) L 04/15/17 05:30 Est GFR ( Amer) > 60 04/15/17 05:30 Est GFR (Non-Af Amer) > 60 04/15/17 05:30 POC Glucose (mg/dL) 231 mg/dL (65-110) H 04/15/17 11:26 Random Glucose 148 mg/dL (70-110) H 04/15/17 05:30 Hemoglobin A1c 10.5 % (4.2-6.5) H 04/14/17 20:20 Serum Osmolality 290 mosm/kg (272-300) 04/14/17 14:26 Calcium 8.3 mg/dL (8.4-10.5) L 04/15/17 05:30 Phosphorus 2.9 mg/dL (2.5-4.5) 04/15/17 05:30 Magnesium 1.8 mg/dL (1.7-2.2) 04/15/17 05:30 Total Bilirubin 0.7 mg/dL (0.2-1.3) 04/15/17 05:30 AST 16 U/L (14-36) 04/15/17 05:30 ALT 26 U/L (7-56) 04/15/17 05:30 Alkaline Phosphatase 41 U/L (38-126) 04/15/17 05:30 Ammonia < 9 umol/L (9-33) L 04/14/17 16:11 Lactate Dehydrogenase 230 U/L (333-699) L 04/14/17 14:26 Total Creatine Kinase 51 U/L (35-230) 04/14/17 14:26 Troponin I < 0.01 ng/mL 04/14/17 14:26 Total Protein 6.2 g/dL (5.8-8.3) 04/15/17 05:30 Albumin 3.3 g/dL (3.0-4.8) 04/15/17 05:30 Globulin 3.0 gm/dL 04/15/17 05:30 Albumin/Globulin Ratio 1.1 (1.1-1.8) 04/15/17 05:30 Triglycerides 61 mg/dL (35-160) 04/14/17 20:20 Cholesterol 107 mg/dL (130-200) L 04/14/17 20:20 LDL Cholesterol Direct 55 mg/dL (0-129) 04/14/17 20:20 HDL Cholesterol 44 mg/dL (29-60) 04/14/17 20:20 Free T4 1.29 ng/dL (0.78-2.19) 04/14/17 20:20 Free T3 pg/mL 3.65 pg/mL (2.77-5.27) 04/14/17 20:20 TSH 3rd Generation 0.11 mIU/mL (0.46-4.68) L 04/14/17 14:26 Venous Blood Potassium 2.9 mmol/L (3.6-5.2) L 04/14/17 14:26 Urine Color Yellow (YELLOW) 04/14/17 14:26 Urine Appearance Clear (CLEAR) 04/14/17 14:26 Urine pH 6.0 (4.7-8.0) 04/14/17 14:26 Ur Specific [place] 1.020 (1.005-1.035) 04/14/17 14:26 Urine Protein Negative mg/dL (<30 mg/dL) 04/14/17 14:26 Urine Glucose (UA) >=1000 mg/dL (NEGATIVE) 04/14/17 14:26 Urine Ketones 15 mg/dL (NEGATIVE) H 04/14/17 14:26 Urine Blood Negative (NEGATIVE) 04/14/17 14:26 Urine Nitrate Negative (NEGATIVE) 04/14/17 14:26 Urine Bilirubin Negative (NEGATIVE) 04/14/17 14:26 Urine Urobilinogen 0.2 E.U./dL (<1 E.U./dL) 04/14/17 14:26 Ur Leukocyte Esterase Negative [place]/uL (NEGATIVE) 04/14/17 14:26 Salicylates < 1 mg/dL (2.0-20.0) L 04/14/17 14:26 Urine Opiates Screen Negative (NEGATIVE) 04/14/17 14:26 Urine Methadone Screen Negative (NEGATIVE) 04/14/17 14:26 Acetaminophen < 10.0 ug/ml (10.0-20.0) L 04/14/17 14:26 Ur Barbiturates Screen Negative (NEGATIVE) 04/14/17 14:26 Ur Phencyclidine Scrn Negative (NEGATIVE) 04/14/17 14:26 Ur Amphetamines Screen Negative (NEGATIVE) 04/14/17 14:26 U Benzodiazepines Scrn Negative (NEGATIVE) 04/14/17 14:26 U Oth Cocaine Metabols Negative (NEGATIVE) 04/14/17 14:26 U Cannabinoids Screen Negative (NEGATIVE) 04/14/17 14:26 Alcohol, Quantitative < 10 mg/dL (0-10) 04/14/17 14:26 Attending/Attestation - Attestation I have personally seen and examined this patient.: Yes I have fully participated in the care of the patient.: Yes I have reviewed all pertinent clinical information, including history, physical exam and plan: Yes Notes (Text): 04/15/17 16:31 attending note; Patient seen and examined with resident. Patient is a 36 year old female with a past medical history of diabetes is admitted for the evaluation and treatment of worsening fatigue and lightheadedness. currently diabetes is under control. Metformin stopped. Started on glipizide. electrolyte imbalance was corrected. Diabetic education/dietitian evaluation given. Patient will follow-up with diabetic nurse educator Dorina Ny on Tuesday. depression; evaluated by psychiatrist. Patient refused inpatient admission. Patient is cleared for discharged from psychiatric point of view. outpatient referrals given by psychiatrist. advised to follow-up with [facility] or [facility] clinic. diagnosis; Diabetes Hypokalemia/ hypomagnesemia Depression
[2017-04-15 12:01] VITALS: TEMP 98.7
[2017-04-15 12:30] LABS: OSMOLALITY,SERUM 290 mosm/kg (272-300)
[2017-04-15 12:58] LABS: FT3 3.65 pg/mL (2.77-5.27)
[2017-04-15 14:01] VITALS: PULSE 88
--- NOTE | 2017-04-15 14:25 | CP.PCM.CON ---
<Vianey Bangura - Last Filed: 04/15/17 13:59> History of Present Illness - History of Present Illness History of Present Illness: Patient is a 36 year old female seen in her CCU bed. Consult was called for depression. All information gathered was from the language line as patient is only macanese speaking. Her boyfrien and a friend were at the bedside and the boyfriend indicated he had been concerned because she was not taking care of herself and he thought she was depressed. They were asked to leave while patient was seen. Patient is single and lives alone with her 5 year old son. 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 The child's father pays support. Patient indicates that she has been depressed the last 2 months, becomes tearful in talking about this. Denies ever being hospitalized or being suicidal or having a suicide attempt. Denies any family psychiatric history. Medically client is treated for diabetes at [facility], she sees varied prescribers there. She denies any past or present history of using alcohol or drugs. Patient grew up in [place], indicates that she had a good childhood, came here because her children's father was here. She did well in school, had friends and learned easily. She denies being suicidal or homicidal, denies the presence of hallucinations, delusions, or paranoia. Her concentration and focus are poor, she has been more distracted, sleep and appetite are both poor. Patient initially is agreeable to a voluntary psychiatric admission, but she changed her mind. Referrals were given for outpatient treatment, patient was encouraged to follow up. Past Patient History - Infectious Disease Hx of Infectious Diseases: None - Tetanus Immunizations Tetanus Immunization: Unknown - Past Social History Smoking Status: Never Smoked - CARDIAC Hx Cardiac Disorders: Yes Hx Hypertension: Yes - PULMONARY Hx Respiratory Disorders: No - NEUROLOGICAL Hx Neurological Disorder: Yes Hx Dizziness: Yes - HEENT Hx HEENT Problems: No - RENAL Hx Chronic Kidney Disease: No - ENDOCRINE/METABOLIC Hx Endocrine Disorders: Yes Hx Diabetes Mellitus Type 2: Yes - HEMATOLOGICAL/ONCOLOGICAL Hx Blood Disorders: No - INTEGUMENTARY Hx Dermatological Problems: No - MUSCULOSKELETAL/RHEUMATOLOGICAL Hx Musculoskeletal Disorders: No Hx Falls: No - GASTROINTESTINAL Hx Gastrointestinal Disorders: No - GENITOURINARY/GYNECOLOGICAL Hx Genitourinary Disorders: No - PSYCHIATRIC Hx Psychophysiologic Disorder: No Hx Substance Use: No - SURGICAL HISTORY Hx Surgeries: No Meds Home Medications: Home Medication List Medication Instructions Recorded Confirmed Type GlipiZIDE [Glucotrol] 5 mg PO BID #60 tab 04/15/17 Rx Allergies/Adverse Reactions: Allergies Allergy/AdvReac Type Severity Reaction Status Date / Time No Known Allergies Allergy Verified 03/11/17 20:07 - Medications Medications: Current Medications Acetaminophen (Tylenol 325mg Tab) 650 mg PO Q4H PRN PRN Reason: Fever >100.4 F Last Admin: 04/14/17 20:17 Dose: 650 mg Acetaminophen (Tylenol 325mg Tab) 650 mg PO Q4 PRN PRN Reason: Pain, moderate (4-7) Heparin Sodium (Porcine) (Heparin) 5,000 units SC Q8 LYN PRN Reason: Protocol Last Admin: 04/15/17 05:19 Dose: 5,000 units Hydralazine HCl (Apresoline) 10 mg IVP Q6 PRN PRN Reason: Systolic Blood Pressure Sodium Chloride (Sodium Chloride 0.9%) 1,000 mls @ 100 mls/hr IV .Q10H [facility] Last Admin: 04/15/17 04:59 Dose: 100 mls/hr Insulin Human Lispro (Humalog Med) 0 units SC ACHS LYN PRN Reason: Protocol Last Admin: 04/15/17 11:53 Dose: 3 units Metformin HCl (Glucophage) 500 mg PO BID [facility] Last Admin: 04/15/17 09:01 Dose: 500 mg Pantoprazole Sodium (Protonix Ec Tab) 40 mg PO ACB [facility] Last Admin: 04/15/17 08:51 Dose: 40 mg Potassium Phos/Sodium Phos (Neutra-Phos) 1 pkt PO TID [facility] Last Admin: 04/15/17 09:01 Dose: 1 pkt Results - Vital Signs Recent Vital Signs: Last Vital Signs Temp 98.7 F 04/15/17 12:00 Pulse 83 04/15/17 10:00 Resp 19 04/15/17 05:40 BP 113/61 04/15/17 05:33 Pulse Ox 100 04/15/17 05:40 - Labs Result Diagrams: 04/15/17 05:30 04/15/17 05:30 Labs: Laboratory Results - last 24 hr 04/14/17 04/14/17 04/14/17 20:20 20:20 20:20 WBC RBC Hgb Hct MCV MCH MCHC RDW Plt Count MPV Gran % Lymph % (Auto) [place] % (Auto) Eos % (Auto) Baso % (Auto) Gran # Lymph # [place] # Eos # Baso # Sodium Potassium Chloride Carbon Dioxide Anion Gap BUN Creatinine Est GFR ( Amer) Est GFR (Non-Af Amer) POC Glucose (mg/dL) Random Glucose Hemoglobin A1c 10.5 H Calcium Phosphorus Magnesium Total Bilirubin AST ALT Alkaline Phosphatase Total Protein Albumin Globulin Albumin/Globulin Ratio Triglycerides 61 Cholesterol 107 L LDL Cholesterol Direct 55 HDL Cholesterol 44 Free T4 1.29 Free T3 pg/mL 3.65 04/14/17 04/15/17 04/15/17 21:52 05:30 05:30 WBC 4.9 D RBC 4.20 Hgb 12.9 Hct 37.9 MCV 90.2 MCH 30.7 MCHC 34.0 RDW 12.7 Plt Count 228 MPV 10.6 Gran % 45.9 L Lymph % (Auto) 43.5 H [place] % (Auto) 9.0 H Eos % (Auto) 1.2 L Baso % (Auto) 0.4 Gran # 2.25 Lymph # 2.1 [place] # 0.4 Eos # 0.1 Baso # 0.02 Sodium 139 Potassium 3.8 Chloride 111 H Carbon Dioxide 19 L Anion Gap 12 BUN 6 L Creatinine 0.5 L Est GFR ( Amer) > 60 Est GFR (Non-Af Amer) > 60 POC Glucose (mg/dL) 204 H Random Glucose 148 H Hemoglobin A1c Calcium 8.3 L Phosphorus 2.9 Magnesium 1.8 Total Bilirubin 0.7 AST 16 ALT 26 Alkaline Phosphatase 41 Total Protein 6.2 Albumin 3.3 Globulin 3.0 Albumin/Globulin Ratio 1.1 Triglycerides Cholesterol LDL Cholesterol Direct HDL Cholesterol Free T4 Free T3 pg/mL 04/15/17 04/15/17 08:16 11:26 WBC RBC Hgb Hct MCV MCH MCHC RDW Plt Count MPV Gran % Lymph % (Auto) [place] % (Auto) Eos % (Auto) Baso % (Auto) Gran # Lymph # [place] # Eos # Baso # Sodium Potassium Chloride Carbon Dioxide Anion Gap BUN Creatinine Est GFR ( Amer) Est GFR (Non-Af Amer) POC Glucose (mg/dL) 179 H 231 H Random Glucose Hemoglobin A1c Calcium Phosphorus Magnesium Total Bilirubin AST ALT Alkaline Phosphatase Total Protein Albumin Globulin Albumin/Globulin Ratio Triglycerides Cholesterol LDL Cholesterol Direct HDL Cholesterol Free T4 Free T3 pg/mL <Coretta Way - Last Filed: 04/15/17 16:49> History of Present Illness - History of Present Illness History of Present Illness: see dictation note for more detailed information Results - Vital Signs Recent Vital Signs: Last Vital Signs Temp 98.7 F 04/15/17 12:00 Pulse 88 04/15/17 14:00 Resp 19 04/15/17 05:40 BP 113/61 04/15/17 05:33 Pulse Ox 100 04/15/17 05:40 - Labs Result Diagrams: 04/15/17 05:30 04/15/17 05:30 Labs: Laboratory Results - last 24 hr 04/14/17 04/14/17 04/14/17 20:20 20:20 20:20 WBC RBC Hgb Hct MCV MCH MCHC RDW Plt Count MPV Gran % Lymph % (Auto) [place] % (Auto) Eos % (Auto) Baso % (Auto) Gran # Lymph # [place] # Eos # Baso # Sodium Potassium Chloride Carbon Dioxide Anion Gap BUN Creatinine Est GFR ( Amer) Est GFR (Non-Af Amer) POC Glucose (mg/dL) Random Glucose Hemoglobin A1c 10.5 H Calcium Phosphorus Magnesium Total Bilirubin AST ALT Alkaline Phosphatase Total Protein Albumin Globulin Albumin/Globulin Ratio Triglycerides 61 Cholesterol 107 L LDL Cholesterol Direct 55 HDL Cholesterol 44 Free T4 1.29 Free T3 pg/mL 3.65 04/14/17 04/15/17 04/15/17 21:52 05:30 05:30 WBC 4.9 D RBC 4.20 Hgb 12.9 Hct 37.9 MCV 90.2 MCH 30.7 MCHC 34.0 RDW 12.7 Plt Count 228 MPV 10.6 Gran % 45.9 L Lymph % (Auto) 43.5 H [place] % (Auto) 9.0 H Eos % (Auto) 1.2 L Baso % (Auto) 0.4 Gran # 2.25 Lymph # 2.1 [place] # 0.4 Eos # 0.1 Baso # 0.02 Sodium 139 Potassium 3.8 Chloride 111 H Carbon Dioxide 19 L Anion Gap 12 BUN 6 L Creatinine 0.5 L Est GFR ( Amer) > 60 Est GFR (Non-Af Amer) > 60 POC Glucose (mg/dL) 204 H Random Glucose 148 H Hemoglobin A1c Calcium 8.3 L Phosphorus 2.9 Magnesium 1.8 Total Bilirubin 0.7 AST 16 ALT 26 Alkaline Phosphatase 41 Total Protein 6.2 Albumin 3.3 Globulin 3.0 Albumin/Globulin Ratio 1.1 Triglycerides Cholesterol LDL Cholesterol Direct HDL Cholesterol Free T4 Free T3 pg/mL 04/15/17 04/15/17 08:16 11:26 WBC RBC Hgb Hct MCV MCH MCHC RDW Plt Count MPV Gran % Lymph % (Auto) [place] % (Auto) Eos % (Auto) Baso % (Auto) Gran # Lymph # [place] # Eos # Baso # Sodium Potassium Chloride Carbon Dioxide Anion Gap BUN Creatinine Est GFR ( Amer) Est GFR (Non-Af Amer) POC Glucose (mg/dL) 179 H 231 H Random Glucose Hemoglobin A1c Calcium Phosphorus Magnesium Total Bilirubin AST ALT Alkaline Phosphatase Total Protein Albumin Globulin Albumin/Globulin Ratio Triglycerides Cholesterol LDL Cholesterol Direct HDL Cholesterol Free T4 Free T3 pg/mL
--- NOTE | 2017-04-15 17:41 | CARD ---
APPROVED REPORT EKG Measurement Heart [id number] <Conclusion> Normal sinus rhythm Normal ECG
--- NOTE | 2017-04-16 01:43 | CON ---
DATE: HISTORY OF PRESENT ILLNESS: The patient is admitted into ICU unit because the patient had symptoms of lightheaded, worsening fatigue, and syncopal episode. Psych consult was called for evaluation of depressive symptoms and anxiety symptoms. The patient was seen by nurse practitioner, this life underwriter. Initially, the patient wanted to stay into the hospital, but last minute she changed her mind and she does not want to stay in the psychiatric inpatient unit anymore. The patient reported being depressed and reported that she is financially stressed, but denied any thoughts of killing herself or others. The patient reported that she also feel anxious at work. Only time when she is with her son, she does not feel depressed or anxious. The patient denied hearing voices, denied seeing things. Denied using any drugs. This life underwriter reviewed vital signs. Vital signs seems to be stable. Medications reviewed. Labs reviewed. PAST PSYCHIATRIC HISTORY: The patient denied history of suicidal attempt. Denied history of admission to the psychiatric inpatient unit. MENTAL STATUS EXAM: The patient appears to be alert, pleasant, at times tearful. Mood described as depressed and anxious. Affect was constricted times tearful, mood congruent. Thought process seems to be coherent, goal directed. Thought content, the patient denied visual or auditory hallucinations. Denied paranoid ideation. The patient denied thoughts of harming herself or others. Denied intent or plan. Insight and judgment are fair. Impulses are well controlled. IMPRESSION: Rule out mood disorder, rule out adjustment disorder with depressed and anxious mood. The patient moved into [facility] about 1 year ago, still has difficulties [place] country. PLAN: This life underwriter offered the patient admission, but the patient declined that offer. The patient was provided with information about outpatient clinic at [facility], as well as [facility]], as well as crisis intervention services were provided to the patient . The patient contracted for safety. The patient denied any thoughts of killing herself or others at the moment of discharge. The patient pose no imminent danger to self or others have future oriented plans. 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 The patient verbalized understanding. Case was discussed with the medical team. Should you have any questions give me a call back. Thank you very much for letting me participate in care of your patient. Coretta Way MD
== END 2017-04-15 16:37 | disposition home or self-care (01) ==
LOC: ED 13:55 → INTOOBSV 16:42 → ERH 16:42 → CCU 20:30
PROVIDERS: ADMIT Internal Medicine; ATTEND Internal Medicine
DX: E11.65 Type 2 diabetes mellitus with hyperglycemia (principal); E86.0 Dehydration; I10 Essential (primary) hypertension; E87.6 Hypokalemia; E83.42 Hypomagnesemia; E87.2 Acidosis; F32.9 Major depressive disorder, single episode, unspecified; D64.9 Anemia, unspecified; Z79.84 Long term (current) use of oral hypoglycemic drugs
CPT/HCPCS: 70450; 71020; 80053; 80061; 80320; 80324; 80329; 80345; 80346; 80349; 80353; 80358; 80361; 81003; 82140; 82550; 82803; 82948; 83036; 83615; 83735; 83930; 83992; 84100; 84439; 84443; 84481; 84484; 85025; 85027; 87081; 93005; 95812; 96365; 96372; 99285; G0378; J1644; J3475; J7040